=== PATIENT | male | born 1975 | race Caucasian/White ===

== ENCOUNTER 2019-04-08 21:29 | Emergency (ER) | payer OTHER ==
[~2019-04-08] VITALS: Ht 180.3 cm; Wt 115.7 kg
[~2019-04-08 21:29] MED LIST: DAYPRO600 M1 PO; KEFLEX500 MG PO; MOTRIN800 MG PO; VICODIN 500 MG-1 TAB PO
== END 2019-04-08 22:52 | disposition home or self-care (01) ==
LOC: ED 21:29
DX: S90.31XA Contusion of right foot, initial encounter (principal); S90.121A Contusion of right lesser toe(s) without damage to nail, initial encounter; V09.9XXA Pedestrian injured in unspecified transport accident, initial encounter; Y93.89 Activity, other specified; Y92.89 Other specified places as the place of occurrence of the external cause; Y99.9 Unspecified external cause status